=== PATIENT | female | born 1950 | race Caucasian/White ===

== ENCOUNTER 2023-07-21 12:45 | Outpatient (OUT) | payer MEDICARE, SELFPAY ==
--- NOTE | 2023-07-21 12:47 | MM_ITS ---
Patient Name: LEEANNA CRENSHAW MR#: [id number] : 1950 Exam Date: 07/21/2023 Ordering Doctor: DR DARLING ARNOLD M.D. RADIOLOGY REPORT PROCEDURE: MM TOMOSYNTHESIS SCREENING BI COMPARISON: None. INDICATIONS: Screening for malignant neoplasm Calculator Name NCI Breast Cancer Risk Assessment Tool 5 Year Breast Cancer Risk 1.90% Lifetime Breast Cancer Risk 4.00% Personal Breast Cancer No Personal Ovarian Cancer No Treatments None Family Cancers Father with lung cancer at age 85. LOCATION: [facility] BREAST COMPOSITION: Heterogeneously dense,which may obscure small masses. FINDINGS: DIAGNOSTIC CATEGORY 1--NEGATIVE. RIGHT BREAST: No significant suspicious finding. LEFT BREAST: No significant suspicious finding. RECOMMENDATIONS: ROUTINE MAMMOGRAM AND CLINICAL EVALUATION IN 12 MONTHS. PLEASE NOTE: A NORMAL MAMMOGRAM DOES NOT EXCLUDE THE POSSIBILITY OF BREAST CANCER. A CLINICALLY SUSPICIOUS PALPABLE LUMP SHOULD BE BIOPSIED. Dictated by: Shawn Gonsalves M.D. on 07/21/2023 at 14:56 Approved by: Shawn Gonsalves M.D. on 07/21/2023 at 14:58
== END 2023-07-21 12:46 | disposition home or self-care (01) ==
LOC: MAMMO 12:45
PROVIDERS: PCP Internal Medicine; Visit Provider Internal Medicine
DX: Z12.31 Encounter for screening mammogram for malignant neoplasm of breast (principal); Z80.1 Family history of malignant neoplasm of trachea, bronchus and lung
CPT/HCPCS: 77063; 77067

== ENCOUNTER 2024-06-10 09:57 | Outpatient (OUT) | payer MEDICARE, SELFPAY | END 2024-06-10 09:58 | disposition home or self-care (01) | LOC: CARD 09:58 | PROVIDERS: PCP Internal Medicine; Visit Provider Physician Assistant | DX: R00.2 Palpitations (principal); I10 Essential (primary) hypertension; R01.1 Cardiac murmur, unspecified | CPT/HCPCS: 93246 ==

== ENCOUNTER 2024-07-03 13:06 | Outpatient (OUT) | payer MEDICARE, SELFPAY ==
--- NOTE | 2024-07-03 13:00 | CA_ITS ---
Patient Name: LEEANNA CRENSHAW MR#: [id number] : 1950 Exam Date: 07/03/2024 Ordering Doctor: DR KRYSTIAN BOSS ECHOCARDIOGRAM REPORT PROCEDURE: CA ECHO DOPPLER COMPLETE INDICATIONS: Murmur, palpitations COMPARISON: None. DESCRIPTION: COMPLETE ECHOCARDIOGRAM Real-time transthoracic echocardiography with 2D, M-mode, spectral and color flow Doppler performed. QUALITY: Technical difficult study with supple optimal quality. LEFT VENTRICLE: Normal chamber size. Normal left ventricular wall thickness. Normal left ventricular systolic function without obvious segmental wall motion abnormalities. LV EF: Normal left ventricular ejection fraction 55%. DIASTOLIC: Normal diastolic function. ATRIAL SEPTUM: Visually appears intact. LEFT ATRIUM: Normal chamber size. RIGHT ATRIUM: Normal chamber size. RIGHT VENTRICLE: Normal chamber size. TRICUSPID VALVE: Normal mobility and thickness. No stenosis with trivial regurgitation. No evidence of pulmonary hypertension.RVSP 25 mmHg MITRAL VALVE: Normal mobility and thickness. No evidence of mitral valve stenosis. There is no mitral annular calcification. No mitral regurgitation. AORTIC VALVE: Normal trileaflet appearance. Thickened aortic valve. Normal leaflet mobility. No evidence of aortic valve stenosis. Trivial aortic regurgitation. AORTIC ROOT: Normal diameter and appearance. Ascending aorta is dilated (4.1 cm). Aortic arch is normal in size PULMONIC VALVE: Normal thickness and mobility. No stenosis. No regurgitation. PERICARDIUM: No evidence of pericardial effusion. IVC: Collapes with inspirations. PLEURA: CONCLUSION: Normal left ventricular size and wall thickness. Normal left ventricular systolic function without wall motion Abnormalities, ejection fraction 55% Normal left ventricle diastolic function Normal right ventricle size and systolic function No evidence of pulmonary hypertension Trivial aortic insufficiency Adult Echocardiography Procedure Report Left Ventricle LVEDD (3.7 - 5.6 cm): 4.11 cm LVESD (2.2 - 4.0 cm): 2.74 cm LVIVS thickness (0.6 - 1.2 cm): 1.00 cm LVPW thickness (0.5 - 1.0 cm): 0.86 cm e': 0.10 m/s E - e': 7.81 LVOT Max Gradient: 2.35 mm[Hg] LVOT Area (cm2): 0.77 m/s Peak Velocity (LVOT): 0.77 m/s Mean Velocity (LVOT): 0.50 m/s LVOT Diameter 2.06 cm Left Ventricular Ejection Fraction: Left Atrium LA Volume Index (2D A2C): 34.04 ml/m2 Left Atrium Systolic Dimension: 4.57 cm Mitral Valve MV E to A Ratio: 1.33 MV Max Gradient: MV Mean Gradient: Mitral Valve A-Wave Peak Velocity: 0.58 m/s Mitral Valve E-Wave Peak Velocity: 0.77 m/s Cardiovascular Orifice Area: Right Ventricle RV Internal Diastolic Dimension: Aorta AO Root Diam: 3.73 cm Ascending Ao Diam: 4.13 cm Aortic Valve AoV Area (Peak Del): 2.31 cm2, 2.31 cm2 AoV Area (VTI): 2.84 cm2, 2.84 cm2 Deceleration Becker: Pressure Half-Time: Peak Velocity(Antegrade Flow): 1.11 m/s Peak Gradient(Antegrade Flow): 4.91 mm[Hg] Mean Velocity(Antegrade Flow): 0.69 m/s Mean Gradient(Antegrade Flow): 2.22 mm[Hg] Velocity Time Integral: 26.33 cm Tricuspid Valve Peak Velocity (Regurgitant Flow): 2.36 m/s Peak Velocity: Pulmonic Valve Mean Gradient: 1.17 mm[Hg] Mean Velocity: 0.51 m/s Peak Velocity: 0.72 m/s, 0.80 m/s Peak Gradient: 2.55 mm[Hg], 2.06 mm[Hg] Right Atrium Right Atrium Systolic Pressure: 61.39 ml, 61.39 ml Dictated by: Catracho Shore MD on 07/03/2024 at 17:28 Approved by: Catracho Shore MD on 07/03/2024 at 17:45
--- OUTSIDE RECORDS SUMMARY | 2024-07-03 13:27 | XMS_ITS | CCD ---
Author Organization [facility] Care Team Providers Care Crane Ladle Person Name Role Phone Hermes Daley MD Primary Care Provider KRYSTIAN VELAZQUEZ Attending Unavailable ALBERTO REYEZ Referring Unavailable KRYSTIAN VELAZQUEZ Attending Unavailable KRYSTIAN VELAZQUEZ Referring Unavailable ALBERTO REYEZ Attending Unavailable KRYSTIAN VELAZQUEZ Referring Unavailable Allergies Allergy Classification Reported Allergen(s) Allergy Type Date of Onset Reaction(s) Facility (5 sources) Acetaminophen / oxyCODONE Drug Allergy 05-01-2017 Anxiety [facility] (5 sources) Codeine Drug Allergy 05-02-2017 Anxiety [facility] (5 sources) HYDROmorphone Drug Allergy 11-23-2023 [facility] Work Phone: (5 sources) Meperidine Drug Allergy 05-01-2017 Anxiety [facility] (5 sources) Morphine Drug Allergy 06-17-2017 Anxiety [facility] (5 sources) PHENobarbital Drug Allergy 05-01-2017 [facility] (5 sources) traMADol Drug Allergy 11-23-2023 [facility] Medications Current Medications Medication Drug Class(es) Dates Sig (Normalized) Sig (Original) baclofen 10 mg oral tablet (5 sources) gamma-Aminobuty lucy Acid-ergic Agonist Start: 4 take 1 tablet by mouth in the morning baclofen (Lioresal) 10 MG tablet Indications: Idiopathic scoliosis and kyphoscoliosis Take 1 tablet (10 mg) by mouth in the morning and 1 tablet (10 mg) before bedtime. 200 tablet 3 12/07/2023 Active Cannabinoids (medical cannabis) (5 sources) take 1 dose by mouth at bedtime Cannabinoids (medical cannabis) Take 1 each by mouth at bedtime Oil and gummies Active estradiol 0.5 mg oral tablet (7 sources) Estrogen Start: 4 End: 6 take 1 tablet by mouth once daily estradiol (Estrace) 0.5 MG tablet Indications: Menopausal symptoms Take 1 tablet (0.5 mg) by mouth Daily 90 tablet 3 06/06/2024 06/06/2025 Active levothyroxine sodium 0.05 mg oral tablet (5 sources) l-Thyroxine Start: 4 take 1 tablet by mouth before mealtime levothyroxine (Synthroid, Levoxyl) 50 MCG tablet Indications: Disorder of thyroid gland (CMS/HCC) Take 1 tablet (50 mcg) by mouth in the morning. Take before meals. 100 tablet 3 12/07/2023 Active losartan potassium 50 mg oral tablet (3 sources) Angiotensin 2 Receptor Tommy Start: 4 End: 5 take 1 tablet by mouth in the morning losartan (Cozaar) 50 MG tablet Indications: Benign hypertension (CMS/HCC) Take 1 tablet (50 mg) by mouth in the morning. 100 tablet 3 12/07/2023 06/06/2024 Discontinued (Patient refused) medroxyPROGESTERone acetate 2.5 mg oral tablet (5 sources) Progestin Start: 4 take 1 tablet by mouth once daily medroxyPROGESTERone (Provera) 2.5 MG tablet Indications: Menopausal symptoms Take 1 tablet (2.5 mg) by mouth Daily 90 tablet 3 11/23/2023 Active 24 hr metoprolol succinate 50 mg extended release oral tablet (5 sources) beta-Adrenergic Tommy Start: 4 take 1 tablet by mouth once daily metoprolol succinate XL (Toprol-XL) 50 MG 24 hr tablet Indications: Benign hypertension (CMS/HCC) Take 1 tablet (50 mg) by mouth Daily Do not crush or chew. 100 tablet 3 12/07/2023 Active Multiple Vitamin (multivitamin) capsule (5 sources) take 1 capsule by mouth in the morning Multiple Vitamin (multivitamin) capsule Take 1 capsule by mouth in the morning. Active omeprazole 20 mg delayed release oral capsule (5 sources) Proton Pump Inhibitor Start: 4 take 1 capsule by mouth before mealtime omeprazole (PriLOSEC) [address] capsule Indications: Gastroesophageal reflux disease without esophagitis Take 1 capsule (20 mg) by mouth in the morning. Take before meals. Do not crush or chew.. 100 capsule 3 12/07/2023 Active sertraline 100 mg oral tablet (5 sources) Serotonin Reuptake Inhibitor Start: take 1 tablet by mouth in the morning sertraline (Zoloft) 100 MG tablet Indications: Major depressive disorder, recurrent episode, moderate (CMS/HCC) Take 1 tablet (100 mg) by mouth in the morning. 100 tablet 3 12/07/2023 Active traZODone hydrochloride 100 mg oral tablet (5 sources) Serotonin Reuptake Inhibitor take 1 tablet by mouth at bedtime as needed traZODone (Desyrel) 100 MG tablet Take 100 mg by mouth at bedtime PRN Active ubidecarenone 30 mg oral capsule (5 sources) take 1 capsule by mouth in the morning co-enzyme Q-10 30 MG capsule Take 30 mg by mouth in the morning. Active Completed/Discontinued Medications Medication Drug Class(es) Dates Sig (Normalized) Sig (Original) betamethasone 3 mg/ml / betamethasone acetate 3 mg/ml injectable suspension (4 sources) Corticosteroid Start: 06-12-2024 End: 06-12-2024 betamethasone acetate-betamethason e sodium phosphate (Celestone) injection 12 mg Start: 06-12-2024 End: 06-12-2024 12 mg, Intra-articular, Once PRN Procedure, Starting on Mon06/12/24 at 1420, For 1 dose Problems Active Problems Problem Classification Problem Date Documented Da te Episodic/Chronic Anxiety disorders (5 sources) Anxiety; Translations: [Anxiety disorder, unspecified] Onset: 04-17-2017 11-23-2023 Chronic Cardiac dysrhythmias (10 sources) Palpitations; Translations: [Palpitations] Onset: 06-06-2024 06-06-2024 Episodic Disorders of lipid metabolism (5 sources) Hyperlipidemia; Translations: [Other hyperlipidemia] Onset: 01-12-2023 01-12-2023 Chronic Esophageal disorders (15 sources) Gastro-esophageal reflux disease with esophagitis; Translations: [Gastroesophageal reflux disease with esophagitis] Onset: 08-14-2018 Resolved: 11-23-2023 11-23-2023 Chronic Essential hypertension (11 sources) Benign hypertension; Translations: [Essential (primary) hypertension] Onset: 01-12-2023 01-12-2023 Chronic Heart valve disorders (6 sources) Systolic murmur; Translations: [Cardiac murmur, unspecified] 06-06-2024 Episodic Menopausal disorders (7 sources) Menopausal symptom; Translations: [Menopausal and female climacteric states] Onset: 11-23-2023 11-23-2023 Chronic Miscellaneous mental health disorders (7 sources) Insomnia disorder related to another mental disorder; Translations: [Insomnia due to other mental disorder] Onset: 01-12-2023 01-12-2023 Chronic Mood disorders (7 sources) Moderate recurrent major depression; Translations: [Major depressive disorder, recurrent, moderate] Onset: 01-12-2023 01-12-2023 Chronic Osteoarthritis (4 sources) Osteoarthritis of joint of right shoulder region; Translations: [Primary osteoarthritis, right shoulder] 06-12-2024 Chronic Other bone disease and musculoskeletal deformities (5 sources) Idiopathic kyphoscoliosis; Translations: [Other idiopathic scoliosis, site unspecified] Onset: 05-16-2018 11-23-2023 Chronic Other circulatory disease (5 sources) Raynaud's phenomenon; Translations: [Raynaud's syndrome without gangrene] Onset: 08-14-2018 11-23-2023 Chronic Other connective tissue disease (4 sources) History of total replacement of right hip joint; Translations: [Presence of right artificial hip joint] Onset: 06-06-2024 06-06-2024 Chronic Other connective tissue disease (6 sources) Dupuytren's disease of finger; Translations: [Palmar fascial fibromatosis [Dupuytren]] 06-06-2024 Episodic Other connective tissue disease (2 sources) Muscle spasm of cervical muscle of neck; Translations: [Other muscle spasm] 06-06-2024 Episodic Other non-traumatic joint disorders (6 sources) Derangement of right shoulder joint; Translations: [Other specific joint derangements of right shoulder, not elsewhere classified] 06-06-2024 Chronic Other non-traumatic joint disorders (2 sources) Pain in right shoulder; Translations: [Pain in joint, shoulder region] 06-12-2024 Episodic Spondylosis; intervertebral disc disorders; other back problems (2 sources) Neck pain; Translations: [Cervicalgia] 06-06-2024 Episodic Past or Other Problems Problem Classification Problem Date Documented Da te Episodic/Chronic Abdominal hernia (5 sources) Hiatal hernia; Translations: [Diaphragmatic hernia without obstruction or gangrene] Onset: 10-12-2021 11-23-2023 Episodic Alcohol-related disorders (5 sources) Alcohol intoxication; Translations: [Alcohol use, unspecified with intoxication, unspecified] Onset: 11-23-2023 Resolved: 11-23-2023 11-23-2023 Episodic Deficiency and other anemia (5 sources) Anemia; Translations: [Anemia, unspecified] Onset: 02-20-2020 11-23-2023 Episodic Mood disorders (5 sources) Mood disorders Onset: 11-23-2023 11-23-2023 Other bone disease and musculoskeletal deformities (5 sources) Osteopenia; Translations: [Other specified disorders of bone density and structure, right thigh] Onset: 08-14-2018 11-23-2023 Episodic Poisoning by other medications and drugs (5 sources) Poisoning by unspecified drugs, medicaments and biological substances, accidental (unintentional), initial encounter; Translations: [Poisoning by unspecified drug or medicinal substance] Onset: 04-30-2017 Resolved: 11-23-2023 11-23-2023 Episodic Residual codes; unclassified (5 sources) History of operative procedure on lumbar spinal structure; Translations: [Other specified postprocedural states] Onset: 05-18-2018 11-23-2023 Episodic Respiratory failure; insufficiency; arrest (adult) (5 sources) Acute respiratory failure; Translations: [Acute respiratory failure, unspecified whether with hypoxia or hypercapnia] Onset: 04-30-2017 Resolved: 11-23-2023 11-23-2023 Episodic Thyroid disorders (5 sources) Disorder of thyroid gland; Translations: [Disorder of thyroid, unspecified] Onset: 04-17-2017 11-23-2023 Episodic Results Test Name Value Interpretation Reference Range Facil ity No Panel Informationon 06-12 Janine Payne MA 06/12/2024 2:38 PM L Inj/Asp: R subacromial bursa on 06/12/2024 2:20 PM Indications: pain Details: 25 G needle, ultrasound-guided anterolateral approach Medications: 12 mg betamethasone acetate-betamethason e sodium phosphate 6 (3-3) MG/ML Procedure, treatment alternatives, risks and benefits explained, specific risks discussed. Consent was given by the patient. Immediately prior to procedure a time out was called to verify the correct patient, procedure, equipment, contracting support specialist and site/side marked as required. Patient was prepped and draped in the usual sterile fashion. Emotive e XR Shoulder - right 2 Viewso n 06-12-2024 Imaging Result: AP Grashey and scapular Y-view of the right shoulder taken in the office today showing proximal migration of the humeral head with cystic changes and large inferior humeral head spur associated with glenoid arthritis also noted AC joint arthritic findings with inferior spur of the distal clavicle associated chronic rotator cuff arthropathy. Evidence of thoracic spinal fusion with pedicle screws seen on the images as well. Emotive e Radiology Study observation (narrative) [employer] ([employer] DEXA BONE DENSITYon 12-04-19 24 DEXA BONE DENSITY Region BMD Young-Adult Age-Matched Total (g/cm2) (%) T-Score (%) Z-Score Lt femur .674 79 -1.6 110 +0.5 L forearm .624 91 -1.0 119 +1.7 IMPRESSION: Impression: The mean BMD and corresponding T-score indicated above indicate Low Bone Mass (Osteopenia) and places the patient at a mild to moderate increased risk for fracture. There may be a future risk of developing osteoporosis. Region BMD Young-Adult Age-Matched Total (g/cm2) (%) T-Score (%) Z-Score R forearm .657 96 -0.5 125 +2.2 Impression: The mean BMD and corresponding T-score indicated above indicate Normal Bone Mass and places the patient at no significant risk for fracture. This information can serve as a baseline with which to compare future studies. Comment: The T-score is the primary focus of the interpretation of a patient?s bone mineral density measurement. The T-score is the number of standard deviations an individual is above or below the mean value for a young female having normal bone mass. The WHO defines osteoporosis based on the T-score value? +1.0 to ?0.9: Normal bone mass -1.0 to -2.5: Osteopenia and thus may be at future risk of fracture -2.6 to ?5: Osteoporosis and ?at significantly increased risk of fracture? TRANSCRIBED BY: ELECTRONICALLY SIGNED BY: Shaan Stevenson MD Normal Not Available Vital Signs Date Time Vital Sign Value Performing Clinician Faci lity 06-12-2024 13:29-0500 Body height 165.1 cm Alberto Reyez PA Work Phone: [facility] 06-12-2024 13:29-0500 Body mass index (BMI) [Ratio] 24.63 kg/m2 Alberto Reyez PA Work Phone: [facility] 06-12-2024 13:29-0500 Body weight 67.13 kg Alberto Reyez PA Work Phone: [facility] 06-06-2024 08:43-0500 Body height 165.1 cm Krystian Hemmer PA Work Phone: [facility] 06-06-2024 08:43-0500 Body mass index (BMI) [Ratio] 24.73 kg/m2 Krystian Hemmer PA Work Phone: [facility] 06-06-2024 08:43-0500 Body weight 67.41 kg Krystian Hemmer PA Work Phone: [facility] 06-06-2024 08:43-0500 Diastolic blood pressure 82 mm[Hg] Krystian Hemmer PA Work Phone: [facility] 06-06-2024 08:43-0500 Heart rate 67 /min Krystian Hemmer PA Work Phone: [facility] 06-06-2024 08:43-0500 Respiratory rate 16 /min Krystian Hemmer PA Work Phone: [facility] 06-06-2024 08:43-0500 SaO2% (BldA) [Mass fraction] 99 % Krystian Hemmer PA Work Phone: [facility] 06-06-2024 08:43-0500 Systolic blood pressure 138 mm[Hg] Krystian Hemmer PA Work Phone: [facility] Encounters Encounter Date Encounter Type Care Provider Facility Start: 06-12-2024 End: 06-12-2024 Patient encounter procedure Alberto Reyez PA Work Phone: [facility] Comment on above: Primary osteoarthrit is of right shoulder (Primary Dx); Right shoulder pain, unspecified chronicity; Internal derangement of right shoulder; Dupuytren disease of finger with contracture Start: 06-12-2024 End: 06-12-2024 ambulatory ALBERTO REYEZ Not Available Start: 06-12-2024 End: 06-12-2024 ambulatory ALBERTO REYEZ Not Available Start: 06-06-2024 End: 06-06-2024 Bamboo flowsheet Krystian BOSS Work Phone: [facility] Start: 06-06-2024 End: 06-06-2024 Bamboo flowsheet Krystian Velazquez PA Work Phone: [facility] Start: 06-06-2024 End: 06-06-2024 Office outpatient visit 25 minutes Krystian BOSS Work Phone: [facility] Comment on above: Benign hypertension (CMS/HCC) (Primary Dx); Menopausal symptoms; Palpitations; Internal derangement of right shoulder; Neck pain; Insomnia related to another mental disorder; Dupuytren disease of finger with contracture; Systolic murmur; Muscle spasms of neck; Major depressive disorder, recurrent, moderate (CMS/HCC) Start: 06-06-2024 End: 06-06-2024 ambulatory KRYSTIAN VELAZQUEZ Not Available Start: 12-01-2023 End: 12-04-2023 ambulatory KRYSTIAN VELAZQUEZ Not Available Start: 11-23-2023 End: 11-23-2023 ambulatory KRYSTIAN VELAZQUEZ Not Available Procedures Date Procedure Procedure Detail Performing Clinician Start: 06-12-2024 Arthrocentesis aspir &/inj major jt/bursa w/us Alberto BOSS Work Phone: Start: 06-12-2024 Radex shoulder compl ete minimum 2 views Alberto BOSS Work Phone: Plan of Treatment Date Care Activity Detail Author Start: 11-22-2024 Medicare Annual Wellness (AWV) Medicare Annual Wellness (AWV) [facility] Start: 07-09-2024 End: 07-09-2024 Patient encounter procedure 07/09/2024 9:30 AM EST Office Visit [facility] [address] [place] [id number] Krystian Velazquez PA [address] [facility] [[email or web address] [address] [place] [address] [facility] Start: 06-06-2024 End: 06-06-2025 Holter monitor study Holter monitor Imaging Routine Benign hypertension (CMS/HCC) Palpitations Systolic murmur Expected: 06/06/2024 (Approximate), Expires: 06/06/2025 [facility] Comment on above: Expected: 06/06/2024 (Approximate), Expires: 06/06/2025 Start: 06-06-2024 End: 06-06-2026 US Heart Transthoracic Transthoracic echo (TTE) complete Echocardiography Routine Benign hypertension (CMS/HCC) Palpitations Systolic murmur Expected: 06/06/2024 (Approximate), Expires: 06/06/2026 [facility] Comment on above: Expected: 06/06/2024 (Approximate), Expires: 06/06/2026 Start: 06-06-2024 End: 06-06-2025 XR Cervical spine 4 or 5 Views XR CERVICAL SPINE AP/LAT/FLEX/EXT/OBLIQUES Imaging Routine Neck pain Expected: 06/06/2024, Expires: 06/06/2025 [facility] Work Phone: Comment on above: Expected: 06/06/2024 , Expires: 06/06/2025 Start: 06-06-2024 End: 06-06-2024 Patient encounter procedure 06/06/2024 8:30 AM EST Office Visit [facility] [address] [facility] [address] [place] [id number] Krystian Velazquez PA [address] [facility] [address] [place] [address] Arrived [facility] Comment on above: Arrived Start: 01-14-2024 Influenza vaccination Influenza Vacc ine (#1) [facility] Start: 05-23-2022 Pneumococcal Vaccine : 65+ Years (2 of 2 - PCV) Pneumococcal Vaccine: 65+ Years (2 of 2 - PCV) [facility] Immunizations Immunization Date Immunization Notes Care Provider Fa [facility] 01-16-2023 zoster vaccine recombinant K aren Hemmer PA Work Phone: [facility] 02-20-2022 Influenza, Seasonal, Quadrivalent, Adjuvanted Krystian Hemmer PA Work Phone: [facility] 02-20-2022 influenza virus vacc ine, unspecified formulation Krystian Hemmer PA Work Phone: [facility] 07-13-2021 Pfizer Purple Cap SARS-CoV-2 Vaccination Krystian Hemmer PA Work Phone: [facility] 05-23-2021 pneumococcal polysaccharide vaccine, 23 valent Krystian Hemmer PA Work Phone: [facility] 04-14-2021 Influenza, Seasonal, Quadrivalent, Adjuvanted Krystian Hemmer PA Work Phone: [facility] 08-25-2020 Pfizer Purple Cap SARS-CoV-2 Vaccination Krystian Hemmer PA Work Phone: [facility] 05-18-2020 Pfizer Purple Cap SARS-CoV-2 Vaccination Krystian Hemmer PA Work Phone: [facility] 02-07-2020 Influenza, Seasonal, Quadrivalent, Adjuvanted Krystian Hemmer PA Work Phone: [facility] Payers Date Payer Category Payer Medicare (Managed Care) [employer] [id number] 2023 Medicare [id number] 1950 Unknown [id number] 1950 Unknown [id number] 1950 Unknown [id number] 1950 Unknown [id number] 1950 Unknown [id number] Social History Date Type Detail Facility Start: 11-23-2023 [facility] Start: 05-15-1990 End: 05-15-2005 History of tobacco use Current smoker [facility] Start: 05-15-1990 End: 05-15-2005 History of tobacco use Cigarette Smoker [facility] Start: 11-23-2023 End: 06-12-2024 Cigarettes smoked current (pack per day) - Reported 0.3 [facility] Start: 11-23-2023 Tobacco use and exposure Smoke less tobacco non-user [facility] Start: 11-23-2023 End: 06-12-2024 Alcoholic beverage intake Lifetime non-drinker (finding) [facility] Start: 11-23-2023 End: 06-12-2024 Tobacco use panel [facility] Start: 1950 Sex assigned at Not on file [facility] History of Present illness Narrative 06-12-2024 Janine Payne MA - 06/12/2024 1:45 PM ESTTodd GERA Woodall - 06/12/2024 1:45 PM EST Note Date & Type Note Facility 06-12-2024 History of Presen t illness Narrative Associated Order(s): L Inj/Asp: R subacromial bursa Post-Procedure Diagnose(s): Primary osteoarthritis of right shoulder L Inj/Asp: R subacromial bursa on 06/12/2024 2:20 PM Indications: pain Details: 25 G needle, ultrasound-guided anterolateral approach Medications: 12 mg betamethasone acetate-betamethasone sodium phosphate 6 (3-3) MG/ML Procedure, treatment alternatives, risks and benefits explained, specific risks discussed. Consent was given by the patient. Immediately prior to procedure a time out was called to verify the correct patient, procedure, equipment, contracting support specialist and site/side marked as required. Patient was prepped and draped in the usual sterile fashion. GENERAL HISTORY AND PHYSICAL: NAME: Shraddha Gray : 1950 HISTORY OF PRESENT ILLNESS: Shraddha Gray is an 74 y.o. female is here for orthopedic evaluation of her right shoulder which she has had problems with for a couple years now and noticed increased discomfort with swimming. She denies any specific injury or fall. Patient is new to the office and presents for x-rays and exam. She has had significant spinal surgery and pedicle screw with jojo fixation through the thoracic spine extending into the lumbosacral region as well. That was all done for corrective surgery for scoliosis and kyphosis deformity done in [place]. She has also had hip replacement while living in [place]. She is been in this office with her sister whom sees Dr. Edinson Brooks. PAST MEDICAL HISTORY: Past Medical History: Diagnosis Date Acute respiratory failure ([facility]) 04/30/2017 Alcoholic intoxication with complication ([facility]) 11/23/2023 Anxiety Depression ([facility]) Drug overdose 04/30/2017 Hypertension ([facility]) PAST SURGICAL HISTORY: Past Surgical History: Procedure Laterality Date CARPAL TUNNEL RELEASE Bilateral INCONTINENCE SURGERY SPINE SURGERY lumbar TOTAL HIP ARTHROPLASTY Right SOCIAL HISTORY: Social History Occupational History Not on file Tobacco Use Smoking status: Former Current packs/day: 0.00 Average packs/day: 0.3 packs/day for 15.0 years (3.8 ttl pk-yrs) Types: Cigarettes Start date: 1990 Quit date: 2006 Years since quittin.0 Smokeless tobacco: Never Vaping Use Vaping status: Never Used Substance and Sexual Activity Alcohol use: Never Drug use: Never Sexual activity: Not on file ALLERGIES: Allergies Allergen Reactions Meperidine Anxiety Other Reaction(s): rash/itching Itching, Itching, Oxycodone-Acetaminophen Anxiety Other Reaction(s): rash/itching Itching, insomnia Phenobarbital Other Reaction(s): rash/itching Codeine Anxiety Other Reaction(s): rash/itching Itching, Itching, Hydromorphone Other Reaction(s): Not available Tramadol Other Reaction(s): Not available Morphine Anxiety Other Reaction(s): rash/itching itching MEDICATIONS: Current Outpatient Medications Medication Instructions baclofen (LIORESAL) 10 mg, Oral, 2 times daily Cannabinoids (medical cannabis) 1 each, Oral, Nightly, Oil and gummies co-enzyme Q-10 30 mg, Oral, Daily estradiol (ESTRACE) 0.5 mg, Oral, Daily levothyroxine (SYNTHROID, LEVOXYL) 50 mcg, Oral, Daily before breakfast medroxyPROGESTERone (PROVERA) 2.5 mg, Oral, Daily metoprolol succinate XL (TOPROL-XL) 50 mg, Oral, Daily, Do not crush or chew. Multiple Vitamin (multivitamin) capsule 1 capsule, Oral, Daily omeprazole (PRILOSEC) 20 mg, Oral, Daily before breakfast, Do not crush or chew. sertraline (ZOLOFT) 100 mg, Oral, Every morning traZODone (DESYREL) 100 mg, Oral, Nightly, PRN REVIEW OF SYSTEMS: Review of Systems General: Denies appetite or significant weight change. Denies fever, chills or night sweats. Denies lightheadedness. ENT: Denies dry mouth, sore throat or swollen glands. Denies difficulty swallowing. Denies ear pain. Respiratory: Denies chest pain, SOB, cough or wheezing. Denies asthma or pneumonia symptoms. Cardiovascular: Denies CP or palpitations. No syncope or dyspnea on exertion. Gastrointestinal: Denies nausea or vomiting. Denies heartburn or abdominal pain. Denies diarrhea. Genitourinary: Denies frequent or painful urination. Musculoskeletal: See HPI for comments. Integumentary: Denies rash, lesion or skin infection. Neurologic: Denies dizziness, headache or seizure history. Vitals: Body mass index is 24.63 kg/m . PHYSICAL EXAM: Physical Exam Patient has a lot of crepitus in the glenohumeral joint with passive assisted range of motion actively she can forward flex to about 130 she is able to extend to 145 with assistance isolated abduction is 75 degrees with significant crepitus and popping extending to 80 she has no significant strength against supraspinatus her internal rotation is limited to the lower lumbar spine external rotation from neutral is about 80 degrees subscap and infraspinatus appear to be mildly weak but intact. Patient is also noted to have Dupuytren's of both palms right greater than left she also has some mild flexion contracture of the PIP of the ring finger however it is felt more to be from the joint itself comes there is no real involvement of cord formation past the 4th MCP joint. She also has significant rotation and deformity of the middle finger extending from the PIP and D IP joint of the right hand. XR shoulder 2+ views right Imaging Result: AP Grashey and scapular Y-view of the right shoulder taken in the office today showing proximal migration of the humeral head with cystic changes and large inferior humeral head spur associated with glenoid arthritis also noted AC joint arthritic findings with inferior spur of the distal clavicle associated chronic rotator cuff arthropathy. Evidence of thoracic spinal fusion with pedicle screws seen on the images as well. Orders Placed This Encounter Procedures L Inj/Asp: R subacromial bursa This order was created via procedure documentation XR shoulder 2+ views right Order Specific Question: Reason for exam: Answer: pain XR shoulder 2+ views right Imaging Result: AP Grashey and scapular Y-view of the right shoulder taken in the office today showing proximal migration of the humeral head with cystic changes and large inferior humeral head spur associated with glenoid arthritis also noted AC joint arthritic findings with inferior spur of the distal clavicle associated chronic rotator cuff arthropathy. Evidence of thoracic spinal fusion with pedicle screws seen on the images as well. ASSESSMENT: Primary osteoarthritis of right shoulder Right shoulder pain, unspecified chronicity Internal derangement of right shoulder Dupuytren disease of finger with contracture PLAN: May expect improvement with cortisone after 48 hours up to 1 week. May receive cortisone 3 times a year essentially every 4 months if necessary for arthritis of the shoulder. Cold pack several times a day for 20 minutes and before bedtime may be helpful may continue your anti-inflammatory taking with food to avoid GI upset as long as your kidney function remains good which should be reviewed by her primary care. Discomfort during the daytime. Avoid any heavy repetitive lifting above shoulder height but also trying to maintain best motion possible. Would consider reverse shoulder replacement with either Dr. Diaz or Dr. Brooks in the future if injections are not helping. GERA Collins documented in this encounter [facility] Healthcare Instructions 06-12-2024 Patient Instructions Note Date & Type Note Facility 06-12-2024 Instructions GERA Collins - 06/12/2024 1:45 PM EST May expect improvement with cortisone after 48 hours up to 1 week. May receive cortisone 3 times a year essentially every 4 months if necessary for arthritis of the shoulder. Cold pack several times a day for 20 minutes and before bedtime may be helpful may continue your anti-inflammatory taking with food to avoid GI upset as long as your kidney function remains good which should be reviewed by her primary care. Discomfort during the daytime. Avoid any heavy repetitive lifting above shoulder height but also trying to maintain best motion possible. Would consider reverse shoulder replacement with either Dr. Diaz or Dr. Brooks in the future if injections are not helping. documented in this encounter [facility] History of Present illness Narrative 06-06-2024 GERA Bloom - 06/06/2024 8:30 AM EST Note Date & Type Note Facility 06-06-2024 History of Presen t illness Narrative Images from the original note were not included. HPI Shoulder Pain Additional comments: Admits right shoulder pain that radiates to right side of neck, she is not sure if it is neck pain shoulder pain d/t they both hurt. She does swim a lot and not sure if that is what aggravated it. It has been bothering her for 6 months but over the past 2 months gotten worse. She has a hard time lifting her arm. She has been using Voltaren, aleve, lidocaine patches. Shoulder gradually getting worse. Hand Pain Additional comments: Right hand pain, and right ring finger is now crooked, swelling. Started 3 months ago. She has been using massage, heat, and exercising it with a ball. Med Refill Additional comments: Estrace Last edited by GERA Bloom on 06/06/2024 8:59 AM. Subjective Patient ID: Shraddha Gray is a 74 y.o. female who presents for hypertension. Shraddha is present today for follow up hypertension. Denies chest pain, blurry vision. Admits SOB, headaches. Does check BP's at home and running around 130's/80's. Currently on Losartan Potassium and Metoprolol, but she has not been taking her Losartan d/t her BP have been running good without taking that med. States the medical gummies do help her sleep and feel calmer. Not having to use the Trazodone as often. Admits to h/o of iron deficiency. Did have her labs drawn in November at [facility]. Thinking she may need to see Cardiology due to palpitations worsening lately. Does have some numbness occasionally into her right 1st and 2nd fingers. Pain travels to same fingers. Current Outpatient Medications on File Prior to Visit Medication Sig Dispense Refill baclofen (Lioresal) 10 MG tablet Take 1 tablet (10 mg) by mouth in the morning and 1 tablet (10 mg) before bedtime. 200 tablet 3 Cannabinoids (medical cannabis) Take 1 each by mouth at bedtime Oil and gummies co-enzyme Q-10 30 MG capsule Take 30 mg by mouth in the morning. levothyroxine (Synthroid, Levoxyl) 50 MCG tablet Take 1 tablet (50 mcg) by mouth in the morning. Take before meals. 100 tablet 3 medroxyPROGESTERone (Provera) 2.5 MG tablet Take 1 tablet (2.5 mg) by mouth Daily 90 tablet 3 metoprolol succinate XL (Toprol-XL) 50 MG 24 hr tablet Take 1 tablet (50 mg) by mouth Daily Do not crush or chew. 100 tablet 3 Multiple Vitamin (multivitamin) capsule Take 1 capsule by mouth in the morning. omeprazole (PriLOSEC) [address] capsule Take 1 capsule (20 mg) by mouth in the morning. Take before meals. Do not crush or chew.. 100 capsule 3 sertraline (Zoloft) 100 MG tablet Take 1 tablet (100 mg) by mouth in the morning. 100 tablet 3 traZODone (Desyrel) 100 MG tablet Take 100 mg by mouth at bedtime PRN [DISCONTINUED] estradiol (Estrace) 0.5 MG tablet Take 1 tablet (0.5 mg) by mouth Daily 90 tablet 2 [DISCONTINUED] losartan (Cozaar) 50 MG tablet Take 1 tablet (50 mg) by mouth in the morning. (Patient not taking: Reported on 06/06/2024) 100 tablet 3 No current facility-administered medications on file prior to visit. I have reviewed and reconciled the history and medication list with the patient today. Allergies Allergen Reactions Meperidine Anxiety Other Reaction(s): rash/itching Itching, Itching, Oxycodone-Acetaminophen Anxiety Other Reaction(s): rash/itching Itching, insomnia Phenobarbital Other Reaction(s): rash/itching Codeine Anxiety Other Reaction(s): rash/itching Itching, Itching, Hydromorphone Other Reaction(s): Not available Tramadol Other Reaction(s): Not available Morphine Anxiety Other Reaction(s): rash/itching itching Social History Tobacco Use Smoking status: Former Current packs/day: 0.00 Average packs/day: 0.3 packs/day for 15.0 years (3.8 ttl pk-yrs) Types: Cigarettes Start date: 1990 Quit date: 2005 Years since quittin.0 Smokeless tobacco: Never Vaping Use Vaping status: Never Used Substance Use Topics Alcohol use: Never Drug use: Never No family history on file. Past Medical History: Diagnosis Date Acute respiratory failure ([facility]) 04/30/2017 Alcoholic intoxication with complication ([facility]) 11/23/2023 Anxiety Depression ([facility]) Drug overdose 04/30/2017 Hypertension ([facility]) Past Surgical History: Procedure Laterality Date CARPAL TUNNEL RELEASE Bilateral INCONTINENCE SURGERY SPINE SURGERY lumbar TOTAL HIP ARTHROPLASTY Right Visit Vitals BP 138/82 Pulse 67 Resp 16 Ht 5' 5 Wt 148 lb 9.6 oz SpO2 99% BMI 24.73 kg/m Smoking Status Former BSA 1.76 m Review of Systems Constitutional: Negative for chills, fatigue and fever. Respiratory: Negative for cough, shortness of breath and wheezing. Cardiovascular: Negative for chest pain, palpitations and leg swelling. Gastrointestinal: Negative for abdominal pain, constipation, diarrhea, nausea and vomiting. Musculoskeletal: Positive for arthralgias, myalgias, neck pain and neck stiffness. Skin: Negative for rash. Neurological: Positive for weakness, numbness and headaches. Objective Physical Exam Constitutional: General: She is not in acute distress. Appearance: Normal appearance. She is well-developed. HENT: Head: Normocephalic and atraumatic. Eyes: General: No scleral icterus. Conjunctiva/sclera: Conjunctivae normal. Cardiovascular: Rate and Rhythm: Normal rate and regular rhythm. Heart sounds: Murmur (Williams best over LUSB) heard. Systolic murmur is present with a grade of 2/6. Pulmonary: Effort: Pulmonary effort is normal. No respiratory distress. Breath sounds: Normal breath sounds. No wheezing, rhonchi or rales. Musculoskeletal: Right shoulder: Tenderness and bony tenderness present. Decreased range of motion (Abduction to 75 degrees. Forward flexion to 80 degrees.). Decreased strength. Right hand: Deformity (Contracture noted right ring finger, unable to fully extend finger, no triggering) present. Decreased strength. Normal sensation. Normal capillary refill. Normal pulse. Cervical back: Spasms and tenderness present. No bony tenderness. Pain with movement present. Decreased range of motion (Limited at extremes in all directions of movement). Comments: Strength RUE 4/5. Skin: General: Skin is warm and dry. Neurological: General: No focal deficit present. Mental Status: She is alert and oriented to person, place, and time. Psychiatric: Mood and Affect: Mood normal. Behavior: Behavior normal. Assessment/Plan Diagnoses and all orders for this visit: Benign hypertension (CMS/HCC) - Holter monitor; Future BP has been stable with the Metoprolol alone. Will continue current dosage at this time. Encouraged her to continue to monitor her BP at home. Menopausal symptoms - estradiol (Estrace) 0.5 MG tablet; Take 1 tablet (0.5 mg) by mouth Daily Refill provided on the above. Symptoms well controlled at this time. Palpitations - Holter monitor; Future Will obtain Holter Monitor for further evaluation at this time. May need to refer pt to Cardiology based on results, she is in agreement with doing so if needed. Internal derangement of right shoulder - Ambulatory referral to Orthopaedic Surgery; Future Provided pt with referral to Dr. Edinson Brooks at her request. I suspect rotator cuff involvement. Neck pain - XR CERVICAL SPINE AP/LAT/FLEX/EXT/OBLIQUES; Future Will obtain x-rays of pt's neck for further evaluation at this time. Will notify pt of results once received. Insomnia related to another mental disorder Using CBD gummies for sleep with improvement. Dupuytren disease of finger with contracture Comments: Right Ring Finger Referred pt to Dr. Edinson Brooks for further evaluation and treatment. Systolic murmur - Holter monitor; Future - Transthoracic Echocardiogram Will obtain ECHO for further evaluation given her murmur and worsening palpitations. Muscle spasms of neck Continue Baclofen as needed. Gentle heat, gentle stretching. Major depressive disorder, recurrent, moderate Mood is stable at this time on current medication. Will continue to monitor. Follow up in about 4 weeks (around 07/04/2024) for Recheck. documented in this encounter [facility] Healthcare Evaluation note Note Date & Type Note Facility Evaluation note Diagnosis Benign hypertension (CMS/HCC)- Primary Essential hypertension, benign Menopausal symptoms Symptomatic menopausal or female climacteric states Palpitations Internal derangement of right shoulder Neck pain Cervicalgia Insomnia related to another mental disorder Unspecified nonpsychotic mental disorder Dupuytren disease of finger with contracture Systolic murmur Undiagnosed cardiac murmurs Muscle spasms of neck Major depressive disorder, recurrent, moderate (CMS/HCC) Major depressive disorder, recurrent episode, moderate documented in this encounter [facility] Healthcare Evaluation note Note Date & Type Note Facility Evaluation note Diagnosis Primary osteoarthritis of right shoulder- Primary Right shoulder pain, unspecified chronicity Internal derangement of right shoulder Dupuytren disease of finger with contracture documented in this encounter [facility] Healthcare Summary Purpose Family History No Family History Records Found Advance Directives No Advanced Directives Records Found Additional Source Comments Care Teams (unrecognized sec tion and content) Crane Ladle Person Relationship Specialty Start Date End Date Hermes Daley MD [address] [address] PCP - General Internal Medicine 01/13/23 [employer]ane Ladle Person Relationship Specialty Start Date End Date Hermes Daley MD [address] [facility] [address] [place] [address] PCP - General Internal Medicine 01/13/23 Crane Ladle Person Relationship Specialty Start Date End Date Hermes Daley MD [address] [facility] [address] [place] [address] PCP - General Internal Medicine 01/13/23 Reason for Visit (unrecogniz ed section and content) Reason Comments Shoulder Pain Admits right shoulde r pain that radiates to right side of neck, she is not sure if it is neck pain shoulder pain d/t they both hurt. She does swim a lot and not sure if that is what aggravated it. It has been bothering her for 6 months but over the past 2 months gotten worse. She has a hard time lifting her arm. She has been using Voltaren, aleve, lidocaine patches. Shoulder gradually getting worse. Hand Pain Right hand pain, and right ring finger is now crooked, swelling. Started 3 months ago. She has been using massage, heat, and exercising it with a ball. Med Refill Estrace Reason Comments Pain Specialty Diagnoses / Procedures Referred By Betsy riddle Referred To Contact Orthopaedic Surgery Diagnoses Internal derangement of right shoulder Dupuytren disease of finger with contracture Krystian Velazquez, PA [address] [facility] [address] [place] [address] Phone: tel: fax: Edinson Brooks, DO [address] [facility] [[email or web address]] [place] [address] Phone: tel: fax: Referral ID Status Reason Start Date Expiration Date V isits Requested Visits Authorized [id number] Closed Specialty Services Required 06/06/2024 12/03/2024 1 1 INFORMATION SOURCE (unrecogn ized section and content) DATE CREATED AUTHOR 06/14/2024 [facility] PSYCHIATRIC FOR RECORDS PERTAINING TO PATIENTS WHO ARE OR HAVE BEEN ENROLLED IN A CHEMICAL DEPENDENCY/SUBSTANCEABUSE PROGRAM, SOME INFORMATION MAY BE OMITTED. This clinical summary was aggregated from multiple sources. Caution should be exercised in using it in the provision of clinical care. This summary normalizes information from multiple sources, and as a consequence, information in this document may materially change the coding, format and clinical context of patient data. In addition, data may be omitted in some cases. CLINICAL DECISIONS SHOULD BE BASED ON THE PRIMARY CLINICAL RECORDS. [employer] provides no warranty or guarantee of the accuracy or completeness of information in this document.
== END 2024-07-03 13:07 | disposition home or self-care (01) ==
LOC: CARD 13:06
PROVIDERS: PCP Internal Medicine; Visit Provider Physician Assistant
DX: R00.2 Palpitations (principal); I10 Essential (primary) hypertension; R01.1 Cardiac murmur, unspecified
CPT/HCPCS: 93306